=== PATIENT | female | born 1950 | race Caucasian/White ===

== ENCOUNTER 2024-04-03 06:26 | Day surgery (SDC) | payer MEDICARE, OTHER, SELFPAY ==
[2024-04-03 08:46] VITALS: BP 131/60
[2024-04-03 08:57] VITALS: BMI 41.1
[2024-04-03 09:01] VITALS: BMI 41.1
[2024-04-03 10:46] VITALS: BP 144/84
[2024-04-03 11:00] VITALS: BP 153/82
[2024-04-03 11:15] VITALS: BP 162/89
== END 2024-04-03 11:45 | disposition home or self-care (01) ==
LOC: GI 06:26
PROVIDERS: ATTENDING PHYSICIAN Internal Medicine Gastroenterology
DX: D12.2 Benign neoplasm of ascending colon (principal); D12.4 Benign neoplasm of descending colon; D12.5 Benign neoplasm of sigmoid colon; K57.30 Diverticulosis of large intestine without perforation or abscess without bleeding; D12.8 Benign neoplasm of rectum; K64.0 First degree hemorrhoids
CPT/HCPCS: 45390; 45385; 88305

== ENCOUNTER 2024-10-26 06:43 | Day surgery (SDC) | payer MEDICARE, OTHER, SELFPAY | END 2024-10-26 12:43 | disposition home or self-care (01) | LOC: GI 06:43 | PROVIDERS: ATTENDING PHYSICIAN Internal Medicine Gastroenterology | DX: K57.30 Diverticulosis of large intestine without perforation or abscess without bleeding (principal); D12.8 Benign neoplasm of rectum; K62.89 Other specified diseases of anus and rectum; Z86.0100 Personal history of colon polyps, unspecified; Z98.890 Other specified postprocedural states | CPT/HCPCS: 45335; 45331; 88305 ==